=== PATIENT | male | born 1950 | race Caucasian/White ===

== ENCOUNTER → 2024-07-22 07:04 | Outpatient (REF) | payer MEDICARE, OTHER, SELFPAY | LOC: HWRCS 07:04 | PROVIDERS: ATTENDING PHYSICIAN Internal Medicine Cardiovascular Disease | DX: I34.0 Nonrheumatic mitral (valve) insufficiency (principal); I35.1 Nonrheumatic aortic (valve) insufficiency | CPT/HCPCS: 93306 ==

== ENCOUNTER 2024-09-13 16:23 | Emergency (ER) | payer MEDICARE, OTHER, SELFPAY ==
[2024-09-13] VITALS (14 sets, daily range): BP systolic 139–223; BP diastolic 48–133
--- NOTE | 2024-09-13 16:27 | ED.CVA ---
History of Present Illness
General
Chief Complaint: CVA/TIA Symptoms
Time Seen by Provider: 09/13/24 16:27
Onset of Stroke Symptoms
Onset of symptoms known: Yes
Date of onset of symptoms: 09/13/24
Time of onset of symptoms: 14:00
Time pt last seen normal is known: Yes
Date last time pt seen normal: 09/13/24
Time last time pt seen normal: 16:27
History of Present Illness
History of Present Illness:
TIME OF INITIAL EVALUATION
- 4:20 PM
REVIEW OF OLD RECORDS
- I reviewed records, the patient had cardioversion for A-fib in 2011 here
Note:
CHIEF COMPLAINT(S)
Pronounced left-sided weakness after feeling a need to go to the bathroom while in bed.
HISTORY OF PRESENT ILLNESS
The patient is a 74-year-old male with a history of a stroke 14 years ago, currently on warfarin therapy. He presented with sudden onset left-sided weakness while lying in bed. He initially felt the need to void, and subsequently, experienced an
extreme leaning and near-flaccid condition of the left side. No facial droop was noted, and speech was unaffected, though there were some vision changes post-stroke. The patient was actively moving before the incident, making spaghetti, which
indicates that the event occurred during wakeful activity rather than upon awakening. Current anticoagulant therapy is with warfarin, and the patients International Normalized Ratio (INR) is 18.
EXTERNAL RECORDS REVIEWED
Previously documented as having a stroke 14 years ago, with a persistent history of vision changes. Currently on chronic anticoagulation with warfarin.
CHRONIC MEDICAL CONDITIONS SIGNIFICANTLY AFFECTING CARE
History of stroke 14 years ago, managed with warfarin therapy.
PHYSICAL EXAM
General: Alert, cooperative, no acute distress.
Skin: Warm, dry.
Head: Normocephalic, atraumatic.
Neck: Supple, trachea midline.
Eye, Ears, Nose, Mouth, and Throat: Oral mucosa moist; vision changes post-stroke; patient able to follow finger movements in visual field; difficulty with hearing noted.
Cardiovascular: Normal peripheral perfusion, No edema, irregular rhythm.
Respiratory: Respirations are non-labored.
Gastrointestinal: Abdomen nondistended.
Back: Normal range of motion, Normal alignment.
Musculoskeletal: Significant left-sided weakness, near flaccidity of the left arm and leg.
Neurological: Alert and oriented; he has nearly flaccid paralysis of the left upper extremity, the left lower extremity is minimally antigravity, facial asymmetry is noted, there are no field cuts, mild dysarthria noted
Psychiatric: Cooperative, appropriate mood & affect.
PLAN
Order imaging of the brain to assess for possible new stroke.
Continue monitoring INR levels due to ongoing warfarin therapy.
Evaluate and manage any potential development of new stroke signs or symptoms.
Coordinate with the family, particularly the patients daughter, for ongoing assessment and discussion of care.
DIFFERENTIAL DIAGNOSIS
The Differential Diagnosis includes, in no particular order and is not limited to:
1. Acute ischemic stroke
2. Transient ischemic attack
3. Intracerebral hemorrhage
4. Subdural hematoma
5. Seizure activity
6. Focal neurological deficit from previous stroke
7. Metabolic derangement causing weakness
8. Medication side effect or interaction
9. Atrial fibrillation with embolic event
10. Hypertensive emergency with neurological manifestation
RADIOLOGY
- CT head shows 3 cm right thalamic hemorrhage
EKG
-
LABS
- Blood sugar 110,
UPDATE
- Called [facility] - spoke to Dr. Cardona (stroke fellow) [id number] -she will look at the imaging when available.
- 4:40 PM, speaking to Mike again as the patient does have a bleed and he is hypertensive.
- I have ordered Kcentra and Cardene as blood pressure systolic is over 200
SUMMARY OF ENCOUNTER
The patient, a 74-year-old male with a history of stroke, was evaluated in the emergency department due to sudden left-sided weakness while in bed. The patient, on chronic warfarin therapy, presented with an INR of 3.1, indicating a risk of
bleeding. Given the symptoms and the elevated INR, the plan was to reverse anticoagulation to prevent intracranial hemorrhage. This included administering intravenous Kcentra (prothrombin complex concentrate) for rapid reversal of warfarin's
effects. Additionally, an intravenous cardene (nicardipine) drip was initiated to maintain systolic blood pressure between 180 and 200 mmHg, ensuring optimal perfusion without exacerbating any potential bleeds.
DISPOSITION
Transfer to another facility for further management.
PLAN
Administer intravenous Kcentra and initiate an intravenous nicardipine drip to control blood pressure parameters. Transfer to a tertiary care center ([facility]) for advanced neurovascular intervention and monitoring.
MEDICATION RECONCILIATION
1. Kcentra, administered intravenously for the rapid reversal of anticoagulation.
2. Nicardipine (Cardene) drip initiated to maintain systolic blood pressure within the target range of 180 to 200 mmHg.
MEDICAL DECISION MAKING
-Number and Complexity of Problems Addressed: Chronic conditions affecting care: History of stroke, currently on warfarin therapy, with acute presentation of left-sided weakness. Potential new cerebrovascular event and significantly elevated INR.
-Data:
Category 1
Non-emergency department records reviewed: External record confirmed patients history of stroke and ongoing warfarin therapy.
The plan included ordering an IV Kcentra and cardene drip based on critical lab findings (Increased INR) and clinical presentation.
-Risk:
Prescription medication was required for the immediate reversal of anticoagulation due to a high risk of bleeding.
Consideration of Admission/Observation: Transfer to a tertiary center for further observation and management due to elevated INR and risk of neurological compromise.
DIAGNOSIS
- Acute right thalamic bleed with hypertensive emergency
- Elevated INR due to Warfarin use (ICD-10: D68.32)
I spoke to Dr. Elliott at [facility], neurosurgeon who accepts to his service. No clear indication for emergent neurosurgical intervention at this time therefore will go down by ground as opposed to air.
Phy Exam
Physical Exam
Physical Exam:
See HPI
NIH Stroke Score
Level of Consciousness: 0 - Alert
LOC questions: 0-Answers both correctly
LOC Commands: 0-Performs both correctly
Best Gaze: 0-Normal
Visual Miller: 0=Normal, no visual loss
Facial palsy: 3=Complete paralysis
Motor - Right Arm: 0=No drift 10 seconds
Motor - Left Arm: 4=No movement
Motor - Right Le-No drift 5 seconds
Motor - Left Le-Partial vs. gravity
Limb Ataxia: 0-Absent
Sensation: 0-Normal
Best Language: 0-No aphasia
Dysarthria: 1-Mild slurring
Extinction and Inattention: 0-No abnormality
Total Score:: 10
Course
Orders/Labs/Results
Orders:
Orders
09/13/24 16:[address] HEAD STROKE ALERT W/o Cont Urgent
Comment: onset 2 pm
Reason For Exam: Left sided weakness
CT HEAD/NECK ANG STROKE ALERT Urgent
Comment: 2pm onset
Reason For Exam: left sided weakness
09/13/24 16:27
Electrocardiogram (*1) Urgent
Reason for Study: TIA/Stroke
EKG- Treatment ONCE
09/13/24 16:28
Complete Blood Count/With Diff Urgent
Comprehensive Metabolic Panel Urgent
PTT Urgent
Prothrombin Time Urgent
09/13/24 16:43
Fibrinogen Urgent
Thrombin Time [S] Urgent
09/13/24 17:00
Nicardipine 40 mg/200 ml [Cardene] 40 mg in 200 ml IV PER PROTOCOL
Initial dose in mg/hr, then titrate:: 2.5
Titrate to keep:: SBP 140 - 160 mmHg
Titrate by mg/hr:: 2.5 mg/hr
Frequency of titrations (minutes):: 5-15 minutes
Maximum dose in mg/hr:: 15
Begin to taper infusion when:: Remained at goal for 2hrs
Taper by mg/hr:: 2.5 mg/hr
Frequency of taper (minutes) if patient maintains goal:: every 15-30 minutes
Taper to off?: Yes
If infusion off & no longer maintaining goal:: Contact Provider
09/13/24 17:02
Prothrombin Complex(Pcc),Human [Kcentra] 2,076 unit Empty Viaflex Container 100 ml [Viaflex Empty Container] 80 ml IV NOW
09/13/24 17:03
Phytonadione [Aquamephyton] 10 mg 0.9% Sodium Chloride 50 ml [Nss] 50 ml IV NOW
09/13/24 17:27
Acetaminophen 1000 MG ONCE Acetaminophen 1000MG/100Ml [Ofirmev] 1,000 mg in 100 ml IV ONCE
Acetaminophen IV Indication:: No MT & No Enteral Access
Abnormal Lab Results
09/13/24 09/13/24
16:28 16:29
RBC 4.47 L 10^6/uL
(4.70-6.10)
MCH 32.7 H pg
(27.0-31.0)
Absolute Monos (auto) 1.0 H 10^3/uL
(0.1-0.6)
Lymphocytes % 17.8 L %
(20.5-51.1)
Monocytes % 14.0 H %
(1.7-9.3)
PT 31.7 H Sec
(11.4-14.6)
APTT 38.2 H Sec
(23.4-35.0)
Chloride 114 H mmol/L
(98-107)
Glucose 117 H mg/dl
(70-99)
Alkaline Phosphatase 35 L U/L
(38-126)
POC Glucose 110 H mg/dl
(70-99)
09/13/24 16:28
09/13/24 16:28
Vital Signs
Initial and Last Documented VS:
Initial Vital Signs
BP
200/104
09/13/24 16:26
Last Documented Vital Signs
Pulse Resp BP
89 23 223/133
09/13/24 16:45 09/13/24 16:45 09/13/24 16:30
*Pulse Oximetry
Patient hypoxic: no
*Critical Care Note
Total Time (30-74mins, 75-104mins- exclusive of procedures): 60min
comment:
Patient has a thalamic bleed in the setting of hypertension. Emergently lower blood pressure to under 200 systolic and gave Kcentra numerous discussions with [facility] coordinating care. On reassessment, some/signs are about the same.
ED Attending Note
-
Portions of this chart may have been created with voice recognition software.� Occasional wrong word or��sound alike� substitutions may have occurred due to the inherent limitations of voice recognition software.
Discharge Plan
Departure
Patient Disposition: Admit
Date of Disposition: 09/13/24
Time of Disposition: 16:46
Presentation/result/management discussed w/ accepting MD/DO: Hospitalist
Discharge Problem:
Thalamic hemorrhage with stroke
Prescriptions:
No Action
warfarin [Jantoven] 5 MG tablet
5 mg PO TUSA
warfarin 5 mg tablet
2.5 mg PO SUMOWETHFR
metoprolol tartrate 100 mg tablet
100 mg PO BID
lisinopril 20 mg tablet
20 mg PO BID
Theragen Tablet
1 tab PO DAILY
rosuvastatin 5 mg tablet
5 mg PO DAILY
omega 6-gqc-ner-fish oil [Fish Oil] 1,200 (144-216) mg Capsule
1 cap PO BID
Discharge Date and Time
Print Language: MONTENEGRIN
[2024-09-13 16:30] LABS: Glucose - Point of Care 110 mg/dl (70-99)
[2024-09-13 16:36] LABS: Hematocrit 41.6 % (39.0-52.0); Hemoglobin 14.6 g/dL (13.0-18.0); Mean Corp Hgb Conc. 35.1 g/dL (33.0-37.0); Mean Corpuscular Volume 93.1 fL (80.0-94.0); Nucleated Red Blood Cells % 0 % (-); Platelet Count 158 10^3/uL (130-400); Red Cell Dist. Width 12.3 % (11.5-14.5)
[2024-09-13 16:46] LABS: INR 3.09; PT 31.7 Sec (11.4-14.6)
[2024-09-13 16:47] LABS: APTT 38.2 Sec (23.4-35.0)
[2024-09-13 16:51] LABS: ALT (SGPT) 32 U/L (0-50); AST (SGOT) 34 U/L (17-59); Albumin 4.1 g/dl (3.5-5.0); Alkaline Phosphatase 35 U/L (38-126); Blood Urea Nitrogen 17 mg/dl (9-20); Calcium 9.4 mg/dl (8.4-10.2); Carbon Dioxide 22 mmol/L (22-30); Chloride 114 mmol/L (98-107); Estimated Creatinine Clearance 92 ml/min; Glucose 117 mg/dl (70-99); Potassium 4.1 mmol/L (3.5-5.1); Sodium 141 mmol/L (135-145); Total Protein 7.4 g/dl (6.3-8.2); eGFR > 60.00
[2024-09-13] MEDS: CARDENE 200 IV (17:01)
[2024-09-13] MEDS: KCENTRA 80 UNIT IV (17:14)
[2024-09-13] MEDS: AQUAMEPHYTON 51 MG IV (17:33)
[2024-09-13] MEDS: OFIRMEV 100 IV (17:43)
== END 2024-09-13 19:48 | disposition short-term general hospital (02) ==
LOC: EMR 16:23
PROVIDERS: EMERGENCY PHYSICIAN Emergency Medicine
DX: I61.8 Other nontraumatic intracerebral hemorrhage (principal); I16.1 Hypertensive emergency; R53.1 Weakness
CPT/HCPCS: 99291; 96374; 96375 ×3; 70450; 70496; 70498; 80053; 82962; 85025; 85610; 85730; 93005; J7168; Q9967